=== PATIENT | female | born 1975 | race Caucasian/White ===

== ENCOUNTER → 2025-11-17 11:02 | Outpatient (REF) | payer BC, SELFPAY ==
[2025-11-17 12:20] LABS: Hematocrit 41.5 % (37.0-47.0); Hemoglobin 12.9 g/dL (12.0-16.0); Mean Corp Hgb Conc. 31.1 g/dL (33.0-37.0); Mean Corpuscular Volume 89.2 fL (81.0-99.0); Nucleated Red Blood Cells % 0 %; Platelet Count 365 10^3/uL (130-400); Red Cell Dist. Width 13.8 % (11.5-14.5)
[2025-11-17 13:28] LABS: Blood Urea Nitrogen 21 mg/dl (7-17); Calcium 9.8 mg/dl (8.4-10.2); Carbon Dioxide 28 mmol/L (22-30); Chloride 101 mmol/L (98-107); Glucose 91 mg/dl (70-99); Potassium 4.3 mmol/L (3.5-5.1); Sodium 137 mmol/L (135-145); eGFR > 60.00
== END ==
LOC: RCS 11:02
PROVIDERS: ATTENDING PHYSICIAN Orthopaedic Surgery Hand Surgery; FAMILY PHYSICIAN Internal Medicine
DX: Z01.818 Encounter for other preprocedural examination (principal)
CPT/HCPCS: 36415; 80048; 85025; 93005

== ENCOUNTER 2025-11-21 06:16 | Day surgery (SDC) | payer BC, SELFPAY ==
[2025-11-21] VITALS (9 sets, daily range): BP systolic 119–151; BP diastolic 76–97; BMI 36.1
[2025-11-21] MEDS: TYLENOL 1000 MG PO (07:58)
[2025-11-21] MEDS: CELEBREX 200 MG PO (07:58)
[2025-11-21] MEDS: NORMOSOL-R/PLASMALYTE-A 1000 IV (08:04)
[2025-11-21] MEDS: DILAUDID 0.25 MG IV (10:37)
== END 2025-11-21 12:09 | disposition home or self-care (01) ==
LOC: SDS 06:16
PROVIDERS: ATTENDING PHYSICIAN Orthopaedic Surgery Hand Surgery
DX: S52.551A Other extraarticular fracture of lower end of right radius, initial encounter for closed fracture (principal); X58.XXXA Exposure to other specified factors, initial encounter
CPT/HCPCS: 25607; C1713